=== PATIENT | male | born 1985 | race Hispanic/Latino ===

== ENCOUNTER 2022-05-07 07:57 | Day surgery (SDC) | payer BC ==
[~2022-05-07] VITALS: Ht 172.7 cm; Wt 90.7 kg
[~2022-05-07 07:57] MED LIST: AMLODIPINE BESY10 MG PO; BASAGLAR K100 UNIT/M; ESCITALOPRAM OX10 MG PO; FISH OIL1000 M2 PO; IRON COMPLEX PO; LIPITOR20 M1 PO; METFORMIN500 M2 PO; NOVOLO1 SC; OZEMPIC2 MG/1.5 M; TADALAFIL20 M1 PO
[2022-05-07 10:03] VITALS: BP 143/79
== END 2022-05-07 10:35 | disposition home or self-care (01) | DRG 395 ==
LOC: ENDO 07:57 → ORM 08:45 → ENDO 08:45
PROVIDERS: ATTEND Surgery
PROC: 0DBM8ZX Excision of Descending Colon, Via Natural or Artificial Opening Endoscopic, Diagnostic (ICD-10-PCS; principal; 2022-05-07)
PROC: 0DBC8ZX Excision of Ileocecal Valve, Via Natural or Artificial Opening Endoscopic, Diagnostic (ICD-10-PCS; 2022-05-07)
DX: D12.0 Benign neoplasm of cecum (principal); K63.5 Polyp of colon; K64.8 Other hemorrhoids; I10 Essential (primary) hypertension; E11.9 Type 2 diabetes mellitus without complications; Z79.84 Long term (current) use of oral hypoglycemic drugs; Z79.4 Long term (current) use of insulin

== ENCOUNTER → 2023-05-19 | Day surgery (SDC) | payer BC ==
[~2023-05-19] VITALS: Ht 172.7 cm; Wt 94.8 kg
[~2023-05-19] MED LIST changes: +CHLORTHALID50 MG PO; +COZAAR50 MG PO; +HYDRALAZINE HYD25 MG PO
[2023-05-19 08:43] VITALS: BP 151/101
== END | disposition home or self-care (01) | DRG 392 ==
LOC: ENDO 06:43 → ORM 10:15
PROVIDERS: ATTEND Internal Medicine Gastroenterology
PROC: 0DB98ZX Excision of Duodenum, Via Natural or Artificial Opening Endoscopic, Diagnostic (ICD-10-PCS; principal; 2023-05-19)
PROC: 0DB78ZX Excision of Stomach, Pylorus, Via Natural or Artificial Opening Endoscopic, Diagnostic (ICD-10-PCS; 2023-05-19)
PROC: 0DB48ZX Excision of Esophagogastric Junction, Via Natural or Artificial Opening Endoscopic, Diagnostic (ICD-10-PCS; 2023-05-19)
DX: K21.00 Gastro-esophageal reflux disease with esophagitis, without bleeding (principal); K29.50 Unspecified chronic gastritis without bleeding; K31.89 Other diseases of stomach and duodenum; E11.9 Type 2 diabetes mellitus without complications; R15.9 Full incontinence of feces; I10 Essential (primary) hypertension; Z79.4 Long term (current) use of insulin; Z79.84 Long term (current) use of oral hypoglycemic drugs; Z79.85 Long-term (current) use of injectable non-insulin antidiabetic drugs; Z86.010 Personal history of colon polyps